=== PATIENT | male | born 1955 | race Caucasian/White ===

== ENCOUNTER 2023-04-05 13:16 | Inpatient (IN) | payer MEDICARE, OTHER ==
[~2023-04-05] VITALS: Ht 188 cm; Wt 79.4 kg
[2023-04-05] MEDS ORDERED: ONDANSETRON 4 MG/2 ML VIAL IV ONE (13:45)
[2023-04-05] MEDS ORDERED: IV NORMAL SALINE 1000 ML BAG IV ONE (13:45)
[2023-04-05 13:53] LABS: EOSINOPHILS % (AUTO) 0.1 % (0.0-7.0); HEMATOCRIT 21.8 % (36.7-47.1); LYMPHOCYTES # (AUTO) 0.3 K/uL (0.8-4.8); LYMPHOCYTES % (AUTO) 8.5 % (20.5-51.5); MEAN CORPUSCULAR HEMOGLOBIN 25.2 uug (23.8-33.4); MEAN CORPUSCULAR HGB CONC 31 g/dL (32.5-36.3); MEAN CORPUSCULAR VOLUME 80.4 fL (73.0-96.2); MONOCYTES # (AUTO) 0.5 K/uL (0.1-1.30); NEUTROPHILS # (AUTO) 3.1 K/uL (1.8-8.9); NEUTROPHILS % (AUTO) 77.4 % (38.5-71.5); PLATELET COUNT (AUTO) 231 K/uL (152-348); RED BLOOD CELL COUNT(AUTO) 2.72 MIL/uL (4.06-5.63); RED CELL DISTRIBUTION WIDTH 19.4 % (12.1-16.2)
[2023-04-05] MEDS ORDERED: ONDANSETRON 4 MG/2 ML VIAL ONE (13:55)
[2023-04-05 14:13] LABS: ALANINE AMINOTRANSFERASE < 6 U/L (16-63); ALKALINE PHOSPHATASE 100 U/L (50-136); ASPARTATE AMINOTRANSFERASE 6 U/L (15-37); BILIRUBIN,DIRECT 0.1 mg/dL (0.0-0.2); BILIRUBIN,TOTAL 0.3 mg/dL (0.2-1.0); CALCIUM 8.4 mg/dL (8.5-10.1); CARBON DIOXIDE 26 mmol/L (21-32); CHLORIDE 100 mmol/L (98-107); CREATININE 0.5 mg/dL (0.6-1.3); GLUCOSE 131 mg/dL (74-106); NT-PRO BNP 465 pg/mL (0-125); POTASSIUM 3.9 mmol/L (3.5-5.1); SODIUM SERUM 135 mmol/L (136-145); TOTAL PROTEIN, SERUM 6.6 g/dL (6.4-8.2); UREA NITROGEN, BLOOD 9 mg/dL (7-18)
[2023-04-05 14:30] LABS: DIFFERENTIAL COMMENT 1
[2023-04-05] MEDS ORDERED: EPOGEN SQ (15:01)
[2023-04-05] MEDS ORDERED: PROC10TA13 PO ×2 (15:01)
[2023-04-05] MEDS ORDERED: CYAN100085 PO (15:01)
[2023-04-05] MEDS ORDERED: LEVE500T9 PO (15:01)
[2023-04-05] MEDS ORDERED: OMEP40CA21 PO (15:01)
[2023-04-05] MEDS ORDERED: FOLI1TAB27 PO (15:01)
[2023-04-05] MEDS ORDERED: GLIP5TAB13 PO (15:01)
[2023-04-05] MEDS ORDERED: METO25TA6 PO (15:01)
[2023-04-05] MEDS ORDERED: FERR325T28 PO (15:01)
[2023-04-05] MEDS ORDERED: FINA5TAB3 PO (15:01)
[2023-04-05] MEDS ORDERED: [UNRECOGNIZED DRUG - CODE] PO (15:01)
[2023-04-05] MEDS ORDERED: ATOR40TA PO (15:01)
[2023-04-05] MEDS ORDERED: TAMS-3 PO (15:01)
[2023-04-05] MEDS ORDERED: POLY250017 PO (15:01)
[2023-04-05] MEDS ORDERED: METF-442 PO (15:01)
[2023-04-05] MEDS ORDERED: DEXTROSE 50% 50 ML DISP.SYRIN IV PRN (15:15)
[2023-04-05] MEDS ORDERED: REMEDY ESSENTIAL ZINC PASTE 113 GM TP PRN (15:15)
[2023-04-05] MEDS ORDERED: TEMAZEPAM 15 MG CAPSULE PO PRN (15:15)
[2023-04-05] MEDS ORDERED: MAGNESIUM HYDROXIDE 30 ML LIQUID UDC PO PRN (15:15)
[2023-04-05] MEDS ORDERED: MORPHINE SULFATE 2 MG/1 ML DISP.SYRIN IV PRN (15:15)
[2023-04-05] MEDS ORDERED: HYDROCODONE/APAP 5-325MG TABLET PO PRN (15:15)
[2023-04-05 15:21] LABS: HEMOGLOBIN 6.8 g/dL (12.5-16.3)
[2023-04-05 15:22] LABS: ALBUMIN 1.1 g/dL (3.4-5.0)
[2023-04-05] MEDS ORDERED: PROCHLORPERAZINE MALEATE 5 MG TABLET PO PRN (16:15)
[2023-04-05] MEDS ORDERED: HOME MED MISCELLANEOUS XX SCH ×2 (16:15)
[2023-04-05] MEDS ORDERED: levETIRAcetam 250 MG TABLET ONE (16:33)
[2023-04-05] MEDS ORDERED: METOPROLOL TARTRATE 50 MG TABLET ONE (16:34)
[2023-04-05] MEDS ORDERED: ATORVASTATIN 20 MG TABLET ONE (16:34)
[2023-04-05 16:40] LABS: ANISOCYTOSIS 2+; HYPOCHROMASIA 1+; LYMPHOCYTES % (MANUAL) 8 % (20-40); MONOCYTES % (MANUAL) 7 % (2-10); NEUTROPHILS % (MANUAL) 85 % (42-75)
[2023-04-05] MEDS: glipiZIDE 5 MG TABLET PO SCH (16:58)
[2023-04-05] MEDS: BLOOD SUGAR DIAGNOSTIC 1 EACH STRIP VI SCH ×2 (16:58→22:40)
[2023-04-05] MEDS ORDERED: MIRALAX 17 GM POWD.PACK PO PRN (17:00)
[2023-04-05] MEDS ORDERED: levETIRAcetam 500 MG TABLET PO SCH (17:00)
[2023-04-05] MEDS ORDERED: METOPROLOL TARTRATE 25 MG TABLET PO SCH (17:00)
[2023-04-05] MEDS ORDERED: ATORVASTATIN 40 MG TABLET PO SCH (18:00)
[2023-04-06] MEDS ORDERED: LOPERAMIDE HCL 2 MG CAPSULE ONE (01:53)
[2023-04-06] MEDS ORDERED: LOPERAMIDE HCL 2 MG CAPSULE PO PRN (02:00)
[2023-04-06 06:48] LABS: BASOPHILS % (AUTO) 0.3 % (0.0-2.0); EOSINOPHILS % (AUTO) 0.2 % (0.0-7.0); HEMATOCRIT 24.2 % (36.7-47.1); HEMOGLOBIN 7.9 g/dL (12.5-16.3); LYMPHOCYTES # (AUTO) 0.3 K/uL (0.8-4.8); LYMPHOCYTES % (AUTO) 7.1 % (20.5-51.5); MEAN CORPUSCULAR HEMOGLOBIN 26.2 uug (23.8-33.4); MEAN CORPUSCULAR HGB CONC 33 g/dL (32.5-36.3); MONOCYTES # (AUTO) 0.6 K/uL (0.1-1.30); MONOCYTES % (AUTO) 16.8 % (0.0-11.0); NEUTROPHILS # (AUTO) 2.8 K/uL (1.8-8.9); NEUTROPHILS % (AUTO) 75.6 % (38.5-71.5); PLATELET COUNT (AUTO) 218 K/uL (152-348); RED BLOOD CELL COUNT(AUTO) 3.03 MIL/uL (4.06-5.63); RED CELL DISTRIBUTION WIDTH 18.5 % (12.1-16.2); WHITE BLOOD COUNT (AUTO) 3.7 K/uL (3.6-10.2)
[2023-04-06] MEDS ORDERED: PANTOPRAZOLE SODIUM 40 MG TABLET.DR PO ONE (06:50)
[2023-04-06 06:54] LABS: DIFFERENTIAL COMMENT 1
[2023-04-06 06:57] LABS: CALCIUM 7.6 mg/dL (8.5-10.1); CARBON DIOXIDE 26 mmol/L (21-32); CHLORIDE 102 mmol/L (98-107); CHOLESTEROL 75 mg/dL (<200); CREATININE 0.5 mg/dL (0.6-1.3); GLUCOSE 102 mg/dL (74-106); HDL CHOLESTEROL 25 mg/dL (40-60); PHOSPHOROUS 2.9 mg/dL (2.5-4.9); POTASSIUM 3.5 mmol/L (3.5-5.1); SODIUM SERUM 138 mmol/L (136-145); TRIGLYCERIDES 51 MG/DL (30-150); UREA NITROGEN, BLOOD 6 mg/dL (7-18)
[2023-04-06 07:04] LABS: MAGNESIUM 1.2 mg/dL (1.8-2.4)
[2023-04-06] MEDS: PANTOPRAZOLE SODIUM 40 MG TABLET.DR PO SCH (07:26)
[2023-04-06] MEDS: BLOOD SUGAR DIAGNOSTIC 1 EACH STRIP VI SCH ×4 (07:44→21:13)
[2023-04-06] MEDS ORDERED: FOLIC ACID 1 MG TABLET ONE (08:36)
[2023-04-06] MEDS ORDERED: METOPROLOL TARTRATE 50 MG TABLET ONE (08:36)
[2023-04-06] MEDS ORDERED: CYANOCOBALAMIN 1,000 MCG TABLET ONE (08:37)
[2023-04-06] MEDS ORDERED: FINASTERIDE 5 MG TABLET ONE (08:37)
[2023-04-06] MEDS: FINASTERIDE 5 MG TABLET PO SCH (08:52)
[2023-04-06] MEDS: CALCIUM CARB/VITAMIN D 600-400 MG TABLET PO SCH (08:52)
[2023-04-06] MEDS: FOLIC ACID 1 MG TABLET PO SCH (08:52)
[2023-04-06] MEDS: levETIRAcetam 500 MG TABLET PO SCH ×2 (08:52→21:16)
[2023-04-06] MEDS: METOPROLOL TARTRATE 25 MG TABLET PO SCH ×2 (08:52→21:16)
[2023-04-06] MEDS: CYANOCOBALAMIN 1,000 MCG TABLET PO SCH (08:53)
[2023-04-06] MEDS: glipiZIDE 5 MG TABLET PO SCH ×2 (09:19→17:38)
[2023-04-06] MEDS ORDERED: MAGNESIUM SULFATE/D5W 100 ML ONE ×4 (09:22→13:10)
[2023-04-06] MEDS: MAGNESIUM SULFATE/D5W 100 ML IV SCH ×4 (09:35→12:59)
[2023-04-06 15:36] LABS: ANISOCYTOSIS 2+; LYMPHOCYTES % (MANUAL) 9 % (20-40); MONOCYTES % (MANUAL) 16 % (2-10); NEUTROPHILS % (MANUAL) 75 % (42-75); PLATELET ESTIMATE ADEQUATE
[2023-04-06 15:57] VITALS: BP 112/62; TEMP 97.6; O2SAT 99
[2023-04-06] MEDS: PROTEIN SUPPLEMENT (PROSTAT) 30 ML LIQUID PO SCH (17:38)
[2023-04-06 17:41] LABS: *BILIRUBIN,URIN NEGATIVE (NEGATIVE); *CLARITY,URINE CLEAR (CLEAR); *COLOR,URINE Other (YELLOW); *KETONES,URINE NEGATIVE (NEGATIVE); *PROTEIN,URINE NEGATIVE (NEGATIVE); LEUKOCYTE ESTERASE ,URINE NEGATIVE (NEGATIVE); NITRITE, URINE NEGATIVE (NEGATIVE); UGLUCOSE NEGATIVE (NEGATIVE)
[2023-04-06 17:50] LABS: *BLOOD, URINE TRACE (NEGATIVE)
[2023-04-06 17:59] LABS: WBC,URINE NONE SEEN /HPF (0-3)
[2023-04-06 20:00] VITALS: BP 118/62; TEMP 98.4; O2SAT 98
[2023-04-06] MEDS: ATORVASTATIN 40 MG TABLET PO SCH (21:16)
[2023-04-06] MEDS: TAMSULOSIN HCL 0.4 MG CAP.SR.24H PO SCH (21:16)
[2023-04-07 04:00] VITALS: BP 121/62; TEMP 98.3; O2SAT 99
[2023-04-07] MEDS: ACETAMINOPHEN 325 MG TABLET PO PRN (04:15)
[2023-04-07] MEDS: PANTOPRAZOLE SODIUM 40 MG TABLET.DR PO SCH (06:27)
[2023-04-07] MEDS: BLOOD SUGAR DIAGNOSTIC 1 EACH STRIP VI SCH ×4 (06:34→21:14)
[2023-04-07 07:23] LABS: BASOPHILS % (AUTO) 0.3 % (0.0-2.0); EOSINOPHILS % (AUTO) 0.2 % (0.0-7.0); HEMATOCRIT 23.4 % (36.7-47.1); HEMOGLOBIN 7.5 g/dL (12.5-16.3); LYMPHOCYTES # (AUTO) 0.3 K/uL (0.8-4.8); LYMPHOCYTES % (AUTO) 7.5 % (20.5-51.5); MEAN CORPUSCULAR HEMOGLOBIN 25.7 uug (23.8-33.4); MEAN CORPUSCULAR HGB CONC 32 g/dL (32.5-36.3); MEAN CORPUSCULAR VOLUME 79.9 fL (73.0-96.2); MONOCYTES # (AUTO) 0.6 K/uL (0.1-1.30); MONOCYTES % (AUTO) 16.5 % (0.0-11.0); NEUTROPHILS # (AUTO) 2.8 K/uL (1.8-8.9); NEUTROPHILS % (AUTO) 75.5 % (38.5-71.5); PLATELET COUNT (AUTO) 205 K/uL (152-348); RED BLOOD CELL COUNT(AUTO) 2.93 MIL/uL (4.06-5.63); RED CELL DISTRIBUTION WIDTH 18.5 % (12.1-16.2); WHITE BLOOD COUNT (AUTO) 3.7 K/uL (3.6-10.2)
[2023-04-07 07:35] LABS: DIFFERENTIAL COMMENT 1
[2023-04-07 07:41] LABS: CARBON DIOXIDE 27 mmol/L (21-32); CHLORIDE 101 mmol/L (98-107); CREATININE 0.6 mg/dL (0.6-1.3); GLUCOSE 127 mg/dL (74-106); POTASSIUM 3.6 mmol/L (3.5-5.1); SODIUM SERUM 135 mmol/L (136-145)
[2023-04-07 07:51] LABS: UREA NITROGEN, BLOOD 7 mg/dL (7-18)
[2023-04-07 08:37] LABS: ANISOCYTOSIS 1+; LYMPHOCYTES % (MANUAL) 9 % (20-40); MONOCYTES % (MANUAL) 14 % (2-10); NEUTROPHILS % (MANUAL) 77 % (42-75); PLATELET ESTIMATE ADEQUATE
[2023-04-07 08:38] LABS: HYPOCHROMASIA 1+; OVALOCYTES 1+
[2023-04-07] MEDS: CYANOCOBALAMIN 1,000 MCG TABLET PO SCH (08:53)
[2023-04-07] MEDS: glipiZIDE 5 MG TABLET PO SCH ×2 (08:53→17:13)
[2023-04-07] MEDS: METOPROLOL TARTRATE 25 MG TABLET PO SCH ×2 (08:53→21:16)
[2023-04-07] MEDS: FOLIC ACID 1 MG TABLET PO SCH (08:53)
[2023-04-07] MEDS: levETIRAcetam 500 MG TABLET PO SCH ×2 (08:53→21:15)
[2023-04-07] MEDS: CALCIUM CARB/VITAMIN D 600-400 MG TABLET PO SCH (08:53)
[2023-04-07] MEDS: FERROUS SULFATE 325 MG TABEC PO SCH ×3 (08:53→17:12)
[2023-04-07] MEDS: PROTEIN SUPPLEMENT (PROSTAT) 30 ML LIQUID PO SCH ×2 (08:54→17:00)
[2023-04-07] MEDS: FINASTERIDE 5 MG TABLET PO SCH (08:54)
[2023-04-07] MEDS: MAGNESIUM SULFATE/D5W 100 ML IV SCH ×2 (10:37→10:42)
[2023-04-07 11:41] VITALS: BP 126/68; TEMP 98; O2SAT 97
[2023-04-07 16:00] VITALS: BP 137/68; TEMP 98.5
[2023-04-07] MEDS: ONDANSETRON 4 MG/2 ML VIAL IV PRN ×2 (17:13→17:17)
[2023-04-07 20:00] VITALS: BP 124/69; TEMP 97.2; O2SAT 98
[2023-04-07] MEDS: ATORVASTATIN 40 MG TABLET PO SCH (21:15)
[2023-04-07] MEDS: TAMSULOSIN HCL 0.4 MG CAP.SR.24H PO SCH (21:17)
[2023-04-08] VITALS (10 sets, daily range): BP systolic 116–132; BP diastolic 62–71; TEMP 97.4–99.4; O2SAT 96–98
[2023-04-08] MEDS: PANTOPRAZOLE SODIUM 40 MG TABLET.DR PO SCH (07:04)
[2023-04-08 07:11] LABS: BASOPHILS % (AUTO) 0.3 % (0.0-2.0); HEMATOCRIT 22.6 % (36.7-47.1); LYMPHOCYTES # (AUTO) 0.4 K/uL (0.8-4.8); LYMPHOCYTES % (AUTO) 9.6 % (20.5-51.5); MEAN CORPUSCULAR HEMOGLOBIN 25.8 uug (23.8-33.4); MEAN CORPUSCULAR HGB CONC 32 g/dL (32.5-36.3); MONOCYTES # (AUTO) 0.7 K/uL (0.1-1.30); MONOCYTES % (AUTO) 18.5 % (0.0-11.0); NEUTROPHILS # (AUTO) 2.7 K/uL (1.8-8.9); NEUTROPHILS % (AUTO) 71.6 % (38.5-71.5); PLATELET COUNT (AUTO) 215 K/uL (152-348); RED BLOOD CELL COUNT(AUTO) 2.78 MIL/uL (4.06-5.63); RED CELL DISTRIBUTION WIDTH 19.1 % (12.1-16.2); WHITE BLOOD COUNT (AUTO) 3.8 K/uL (3.6-10.2)
[2023-04-08 07:23] LABS: DIFFERENTIAL COMMENT 1
[2023-04-08 07:34] LABS: CALCIUM 7.8 mg/dL (8.5-10.1); CARBON DIOXIDE 28 mmol/L (21-32); CHLORIDE 103 mmol/L (98-107); CREATININE 0.6 mg/dL (0.6-1.3); GLUCOSE 115 mg/dL (74-106); POTASSIUM 3.8 mmol/L (3.5-5.1); SODIUM SERUM 136 mmol/L (136-145); UREA NITROGEN, BLOOD 7 mg/dL (7-18)
[2023-04-08 07:35] LABS: HEMOGLOBIN 7.2 g/dL (12.5-16.3)
[2023-04-08] MEDS: BLOOD SUGAR DIAGNOSTIC 1 EACH STRIP VI SCH ×4 (07:48→21:00)
[2023-04-08] MEDS: CYANOCOBALAMIN 1,000 MCG TABLET PO SCH (08:32)
[2023-04-08] MEDS: FOLIC ACID 1 MG TABLET PO SCH (08:32)
[2023-04-08] MEDS: levETIRAcetam 500 MG TABLET PO SCH ×2 (08:32→21:54)
[2023-04-08] MEDS: CALCIUM CARB/VITAMIN D 600-400 MG TABLET PO SCH (08:32)
[2023-04-08] MEDS: FERROUS SULFATE 325 MG TABEC PO SCH ×3 (08:33→17:04)
[2023-04-08] MEDS: glipiZIDE 5 MG TABLET PO SCH ×2 (08:33→17:04)
[2023-04-08] MEDS: FINASTERIDE 5 MG TABLET PO SCH (08:33)
[2023-04-08] MEDS: METOPROLOL TARTRATE 25 MG TABLET PO SCH ×2 (08:33→21:53)
[2023-04-08] MEDS: MAGNESIUM SULFATE/D5W 100 ML IV SCH ×2 (08:35→09:27)
[2023-04-08] MEDS: PROTEIN SUPPLEMENT (PROSTAT) 30 ML LIQUID PO SCH ×2 (08:35→17:05)
[2023-04-08 08:53] LABS: IRON, SERUM 16 ug/dL (50-175)
[2023-04-08] MEDS ORDERED: EPOETIN ALFA 10,000 UNITS/ML VIAL SQ SCH (09:00)
[2023-04-08] MEDS ORDERED: EPOETIN ALFA-EPBX 10,000 UNIT/ML VIAL SQ SCH ×2 (09:00)
[2023-04-08 09:32] LABS: ANISOCYTOSIS 2+; HYPOCHROMASIA 1+; LYMPHOCYTES % (MANUAL) 6 % (20-40); MONOCYTES % (MANUAL) 9 % (2-10); NEUTROPHILS % (MANUAL) 85 % (42-75); PLATELET ESTIMATE ADEQUATE
[2023-04-08] MEDS: INSULIN REGULAR, HUMAN 300 UNIT/3 ML VIAL SQ PRN ×2 (11:07→16:48)
[2023-04-08] MEDS: ACETAMINOPHEN 325 MG TABLET PO PRN (21:53)
[2023-04-08] MEDS: ATORVASTATIN 40 MG TABLET PO SCH (21:53)
[2023-04-08] MEDS: TAMSULOSIN HCL 0.4 MG CAP.SR.24H PO SCH (21:55)
[2023-04-09 04:00] VITALS: BP 148/64; TEMP 98; O2SAT 98
[2023-04-09 07:01] LABS: BASOPHILS % (AUTO) 0.4 % (0.0-2.0); EOSINOPHILS % (AUTO) 0.3 % (0.0-7.0); HEMATOCRIT 23.9 % (36.7-47.1); LYMPHOCYTES # (AUTO) 0.4 K/uL (0.8-4.8); LYMPHOCYTES % (AUTO) 9.8 % (20.5-51.5); MEAN CORPUSCULAR HEMOGLOBIN 27.1 uug (23.8-33.4); MEAN CORPUSCULAR HGB CONC 34 g/dL (32.5-36.3); MEAN CORPUSCULAR VOLUME 80.8 fL (73.0-96.2); MONOCYTES # (AUTO) 0.7 K/uL (0.1-1.30); MONOCYTES % (AUTO) 18.4 % (0.0-11.0); NEUTROPHILS # (AUTO) 2.7 K/uL (1.8-8.9); NEUTROPHILS % (AUTO) 71.1 % (38.5-71.5); PLATELET COUNT (AUTO) 208 K/uL (152-348); RED BLOOD CELL COUNT(AUTO) 2.95 MIL/uL (4.06-5.63); RED CELL DISTRIBUTION WIDTH 18.8 % (12.1-16.2); WHITE BLOOD COUNT (AUTO) 3.8 K/uL (3.6-10.2)
[2023-04-09 07:22] LABS: DIFFERENTIAL COMMENT 1
[2023-04-09 07:26] LABS: LYMPHOCYTES % (MANUAL) 0 % (20-40); NEUTROPHILS % (MANUAL) 0 % (42-75)
[2023-04-09 07:40] LABS: CALCIUM 7.6 mg/dL (8.5-10.1); CARBON DIOXIDE 28 mmol/L (21-32); CHLORIDE 101 mmol/L (98-107); CREATININE 0.5 mg/dL (0.6-1.3); GLUCOSE 113 mg/dL (74-106); POTASSIUM 3.3 mmol/L (3.5-5.1); SODIUM SERUM 135 mmol/L (136-145); UREA NITROGEN, BLOOD 6 mg/dL (7-18)
[2023-04-09] MEDS: BLOOD SUGAR DIAGNOSTIC 1 EACH STRIP VI SCH ×4 (08:16→21:22)
[2023-04-09] MEDS: PANTOPRAZOLE SODIUM 40 MG TABLET.DR PO SCH (08:22)
[2023-04-09] MEDS: CYANOCOBALAMIN 1,000 MCG TABLET PO SCH (08:22)
[2023-04-09] MEDS: levETIRAcetam 500 MG TABLET PO SCH ×2 (08:22→21:19)
[2023-04-09] MEDS: FOLIC ACID 1 MG TABLET PO SCH (08:22)
[2023-04-09] MEDS: CALCIUM CARB/VITAMIN D 600-400 MG TABLET PO SCH (08:22)
[2023-04-09] MEDS: glipiZIDE 5 MG TABLET PO SCH ×2 (08:24→16:55)
[2023-04-09] MEDS: FINASTERIDE 5 MG TABLET PO SCH (08:24)
[2023-04-09] MEDS: FERROUS SULFATE 325 MG TABEC PO SCH ×3 (08:24→16:55)
[2023-04-09] MEDS: METOPROLOL TARTRATE 25 MG TABLET PO SCH ×2 (09:10→21:19)
[2023-04-09] MEDS: PROTEIN SUPPLEMENT (PROSTAT) 30 ML LIQUID PO SCH ×2 (09:11→17:00)
[2023-04-09] MEDS ORDERED: POTASSIUM CHLORIDE 20 MEQ TAB.PRT.SR PO ONE (11:00)
[2023-04-09] MEDS: MAGNESIUM SULFATE/D5W 100 ML IV SCH ×2 (11:05→12:30)
[2023-04-09] MEDS: INSULIN REGULAR, HUMAN 300 UNIT/3 ML VIAL SQ PRN (11:25)
[2023-04-09 14:50] VITALS: TEMP 98.4
[2023-04-09] MEDS: ONDANSETRON 4 MG/2 ML VIAL IV PRN (16:55)
[2023-04-09 17:16] VITALS: TEMP 98.1
[2023-04-09 17:44] LABS: *OCCULT BLOOD STOOL NEGATIVE (NEGATIVE)
[2023-04-09 20:32] VITALS: BP 122/66; TEMP 98.1; O2SAT 99
[2023-04-09] MEDS: TAMSULOSIN HCL 0.4 MG CAP.SR.24H PO SCH (21:19)
[2023-04-09] MEDS: ATORVASTATIN 40 MG TABLET PO SCH (21:19)
[2023-04-10 04:20] VITALS: BP 123/66; TEMP 98.4; O2SAT 95
[2023-04-10] MEDS: PANTOPRAZOLE SODIUM 40 MG TABLET.DR PO SCH (06:15)
[2023-04-10] MEDS: BLOOD SUGAR DIAGNOSTIC 1 EACH STRIP VI SCH ×4 (06:42→21:06)
[2023-04-10 07:25] LABS: BASOPHILS % (AUTO) 0.4 % (0.0-2.0); EOSINOPHILS % (AUTO) 0.2 % (0.0-7.0); HEMATOCRIT 24.9 % (36.7-47.1); HEMOGLOBIN 8.1 g/dL (12.5-16.3); LYMPHOCYTES # (AUTO) 0.4 K/uL (0.8-4.8); LYMPHOCYTES % (AUTO) 9.3 % (20.5-51.5); MEAN CORPUSCULAR HEMOGLOBIN 26.4 uug (23.8-33.4); MEAN CORPUSCULAR HGB CONC 32 g/dL (32.5-36.3); MEAN CORPUSCULAR VOLUME 81.3 fL (73.0-96.2); MONOCYTES # (AUTO) 0.7 K/uL (0.1-1.30); MONOCYTES % (AUTO) 17.9 % (0.0-11.0); NEUTROPHILS # (AUTO) 2.9 K/uL (1.8-8.9); NEUTROPHILS % (AUTO) 72.2 % (38.5-71.5); PLATELET COUNT (AUTO) 205 K/uL (152-348); RED BLOOD CELL COUNT(AUTO) 3.06 MIL/uL (4.06-5.63); RED CELL DISTRIBUTION WIDTH 19.2 % (12.1-16.2)
[2023-04-10 07:31] LABS: DIFFERENTIAL COMMENT 1
[2023-04-10 07:34] LABS: NEUTROPHILS % (MANUAL) 0 % (42-75)
[2023-04-10 07:35] LABS: LYMPHOCYTES % (MANUAL) 0 % (20-40)
[2023-04-10 07:38] LABS: ALANINE AMINOTRANSFERASE 8 U/L (16-63); ALKALINE PHOSPHATASE 87 U/L (50-136); ASPARTATE AMINOTRANSFERASE 7 U/L (15-37); BILIRUBIN,TOTAL 0.4 mg/dL (0.2-1.0); CALCIUM 8.1 mg/dL (8.5-10.1); CARBON DIOXIDE 27 mmol/L (21-32); CHLORIDE 101 mmol/L (98-107); CREATININE 0.5 mg/dL (0.6-1.3); GLUCOSE 109 mg/dL (74-106); MAGNESIUM 1.5 mg/dL (1.8-2.4); POTASSIUM 3.9 mmol/L (3.5-5.1); SODIUM SERUM 136 mmol/L (136-145); UREA NITROGEN, BLOOD 7 mg/dL (7-18)
[2023-04-10] MEDS: FERROUS SULFATE 325 MG TABEC PO SCH ×3 (08:31→17:10)
[2023-04-10] MEDS: CYANOCOBALAMIN 1,000 MCG TABLET PO SCH (08:32)
[2023-04-10] MEDS: METOPROLOL TARTRATE 25 MG TABLET PO SCH ×2 (08:32→21:13)
[2023-04-10] MEDS: CALCIUM CARB/VITAMIN D 600-400 MG TABLET PO SCH (08:32)
[2023-04-10] MEDS: FOLIC ACID 1 MG TABLET PO SCH (08:32)
[2023-04-10] MEDS: glipiZIDE 5 MG TABLET PO SCH ×2 (08:33→17:10)
[2023-04-10] MEDS: FINASTERIDE 5 MG TABLET PO SCH (08:33)
[2023-04-10] MEDS: levETIRAcetam 500 MG TABLET PO SCH ×2 (08:33→21:13)
[2023-04-10] MEDS: ENSURE ENLIVE (VAN) 240 ML LIQUID PO SCH (08:34)
[2023-04-10] MEDS: PROTEIN SUPPLEMENT (PROSTAT) 30 ML LIQUID PO SCH ×2 (08:34→17:10)
[2023-04-10 10:57] LABS: ALBUMIN 0.9 g/dL (3.4-5.0)
[2023-04-10] MEDS: INSULIN REGULAR, HUMAN 300 UNIT/3 ML VIAL SQ PRN ×3 (11:27→21:17)
[2023-04-10 11:39] VITALS: BP 119/66; TEMP 98.4; O2SAT 99
[2023-04-10] MEDS: MAGNESIUM SULFATE/D5W 100 ML IV SCH ×2 (12:14→12:26)
[2023-04-10] MEDS: ACIDOPHILUS/BULGARICUS CHEW TAB PO SCH ×3 (12:27→22:06)
[2023-04-10 15:46] VITALS: BP 98/62; TEMP 98.4; O2SAT 100
[2023-04-10 20:00] VITALS: BP 123/66; TEMP 98.2
[2023-04-10] MEDS: TAMSULOSIN HCL 0.4 MG CAP.SR.24H PO SCH (21:06)
[2023-04-10] MEDS: ATORVASTATIN 40 MG TABLET PO SCH (21:13)
[2023-04-11 04:00] VITALS: BP 120/65; TEMP 98.5
[2023-04-11] MEDS: ACIDOPHILUS/BULGARICUS CHEW TAB PO SCH ×3 (06:16→22:27)
[2023-04-11] MEDS: PANTOPRAZOLE SODIUM 40 MG TABLET.DR PO SCH (06:16)
[2023-04-11] MEDS: BLOOD SUGAR DIAGNOSTIC 1 EACH STRIP VI SCH ×4 (06:49→21:18)
[2023-04-11 07:29] LABS: BASOPHILS % (AUTO) 0.3 % (0.0-2.0); EOSINOPHILS % (AUTO) 0.2 % (0.0-7.0); HEMATOCRIT 23.4 % (36.7-47.1); HEMOGLOBIN 7.5 g/dL (12.5-16.3); LYMPHOCYTES # (AUTO) 0.3 K/uL (0.8-4.8); LYMPHOCYTES % (AUTO) 8.4 % (20.5-51.5); MEAN CORPUSCULAR HGB CONC 32 g/dL (32.5-36.3); MEAN CORPUSCULAR VOLUME 81.3 fL (73.0-96.2); MONOCYTES # (AUTO) 0.7 K/uL (0.1-1.30); MONOCYTES % (AUTO) 16.5 % (0.0-11.0); NEUTROPHILS # (AUTO) 2.9 K/uL (1.8-8.9); NEUTROPHILS % (AUTO) 74.6 % (38.5-71.5); PLATELET COUNT (AUTO) 186 K/uL (152-348); RED BLOOD CELL COUNT(AUTO) 2.87 MIL/uL (4.06-5.63); WHITE BLOOD COUNT (AUTO) 3.9 K/uL (3.6-10.2)
[2023-04-11 07:41] LABS: DIFFERENTIAL COMMENT 1
[2023-04-11 09:17] LABS: LYMPHOCYTES % (MANUAL) 0 % (20-40); NEUTROPHILS % (MANUAL) 0 % (42-75)
[2023-04-11] MEDS: CALCIUM CARB/VITAMIN D 600-400 MG TABLET PO SCH (09:30)
[2023-04-11] MEDS: glipiZIDE 5 MG TABLET PO SCH ×2 (09:30→18:04)
[2023-04-11] MEDS: FINASTERIDE 5 MG TABLET PO SCH (09:30)
[2023-04-11] MEDS: levETIRAcetam 500 MG TABLET PO SCH ×2 (09:30→21:11)
[2023-04-11] MEDS: METOPROLOL TARTRATE 25 MG TABLET PO SCH ×2 (09:30→21:15)
[2023-04-11] MEDS: CYANOCOBALAMIN 1,000 MCG TABLET PO SCH (09:30)
[2023-04-11] MEDS: FERROUS SULFATE 325 MG TABEC PO SCH ×3 (09:30→18:04)
[2023-04-11] MEDS: PROTEIN SUPPLEMENT (PROSTAT) 30 ML LIQUID PO SCH ×2 (09:31→17:00)
[2023-04-11] MEDS: ENSURE ENLIVE (VAN) 240 ML LIQUID PO SCH (09:31)
[2023-04-11] MEDS: FOLIC ACID 1 MG TABLET PO SCH (09:49)
[2023-04-11 12:00] VITALS: BP 128/66; TEMP 97.9; O2SAT 98
[2023-04-11] MEDS ORDERED: SOD FERRIC GLUC COMPLX/SUCROSE 125 MG in IV NORMAL SALINE 100 ML IV SCH (14:00)
[2023-04-11 16:00] VITALS: BP 129/66; TEMP 97.9; O2SAT 97
[2023-04-11 20:00] VITALS: BP 125/67; TEMP 98.1; O2SAT 98
[2023-04-11] MEDS: TAMSULOSIN HCL 0.4 MG CAP.SR.24H PO SCH (21:11)
[2023-04-11] MEDS: ATORVASTATIN 40 MG TABLET PO SCH (21:11)
[2023-04-12 04:00] VITALS: BP 124/65; TEMP 98; O2SAT 97
[2023-04-12] MEDS: ACIDOPHILUS/BULGARICUS CHEW TAB PO SCH (06:22)
[2023-04-12] MEDS: PANTOPRAZOLE SODIUM 40 MG TABLET.DR PO SCH (06:22)
[2023-04-12] MEDS: BLOOD SUGAR DIAGNOSTIC 1 EACH STRIP VI SCH ×2 (06:27→11:30)
[2023-04-12 07:06] LABS: BASOPHILS % (AUTO) 0.2 % (0.0-2.0); EOSINOPHILS % (AUTO) 0.3 % (0.0-7.0); HEMATOCRIT 23.3 % (36.7-47.1); LYMPHOCYTES # (AUTO) 0.3 K/uL (0.8-4.8); LYMPHOCYTES % (AUTO) 9.7 % (20.5-51.5); MEAN CORPUSCULAR HGB CONC 32 g/dL (32.5-36.3); MONOCYTES # (AUTO) 0.5 K/uL (0.1-1.30); MONOCYTES % (AUTO) 14.9 % (0.0-11.0); NEUTROPHILS # (AUTO) 2.6 K/uL (1.8-8.9); NEUTROPHILS % (AUTO) 74.9 % (38.5-71.5); PLATELET COUNT (AUTO) 183 K/uL (152-348); RED BLOOD CELL COUNT(AUTO) 2.84 MIL/uL (4.06-5.63); RED CELL DISTRIBUTION WIDTH 19.2 % (12.1-16.2); WHITE BLOOD COUNT (AUTO) 3.5 K/uL (3.6-10.2)
[2023-04-12 07:18] LABS: HEMOGLOBIN 7.4 g/dL (12.5-16.3)
[2023-04-12 07:19] LABS: DIFFERENTIAL COMMENT 1
[2023-04-12] MEDS: levETIRAcetam 500 MG TABLET PO SCH (08:33)
[2023-04-12] MEDS: glipiZIDE 5 MG TABLET PO SCH (08:34)
[2023-04-12] MEDS: CYANOCOBALAMIN 1,000 MCG TABLET PO SCH (08:34)
[2023-04-12] MEDS: ENSURE ENLIVE (VAN) 240 ML LIQUID PO SCH (08:34)
[2023-04-12] MEDS: FINASTERIDE 5 MG TABLET PO SCH (08:34)
[2023-04-12] MEDS: PROTEIN SUPPLEMENT (PROSTAT) 30 ML LIQUID PO SCH (08:34)
[2023-04-12] MEDS: METOPROLOL TARTRATE 25 MG TABLET PO SCH (08:34)
[2023-04-12] MEDS: FOLIC ACID 1 MG TABLET PO SCH (08:34)
[2023-04-12] MEDS: FERROUS SULFATE 325 MG TABEC PO SCH ×2 (08:34→13:00)
[2023-04-12] MEDS: CALCIUM CARB/VITAMIN D 600-400 MG TABLET PO SCH (08:57)
[2023-04-12] MEDS ORDERED: LEVE500T9 PO (10:30)
[2023-04-12] MEDS ORDERED: METO25TA6 PO (10:30)
[2023-04-12] MEDS ORDERED: PROT30LI PO (10:30)
[2023-04-12] MEDS ORDERED: CYAN-51 PO (10:30)
[2023-04-12] MEDS ORDERED: EPOE1VIA12 SQ (10:30)
[2023-04-12] MEDS ORDERED: LOPE2CAP40 PO (10:30)
[2023-04-12] MEDS ORDERED: ATOR40TA PO (10:30)
[2023-04-12] MEDS ORDERED: PANT40TA49 PO (10:30)
[2023-04-12] MEDS ORDERED: ACID1TAB4 PO (10:30)
[2023-04-12] MEDS ORDERED: EPOETIN ALFA 10,000 UNITS/ML VIAL SQ ONE (11:00)
[2023-04-12 11:36] VITALS: BP 135/70; TEMP 98.8; O2SAT 99
== END 2023-04-12 13:30 | DRG 542 ==
LOC: ER 13:16 → TRANSITION 22:14 → MEDSURG3 04-06 15:07
PROVIDERS: ADMIT Nurse Practitioner Acute Care; ATTEND Nurse Practitioner Acute Care
PROC: 30233N1 Transfusion of Nonautologous Red Blood Cells into Peripheral Vein, Percutaneous Approach (ICD-10-PCS; principal; 2023-04-05)
DX: C49.4 Malignant neoplasm of connective and soft tissue of abdomen (principal); E43 Unspecified severe protein-calorie malnutrition; E87.1 Hypo-osmolality and hyponatremia; D63.0 Anemia in neoplastic disease; E78.5 Hyperlipidemia, unspecified; E83.42 Hypomagnesemia; E88.09 Other disorders of plasma-protein metabolism, not elsewhere classified; I10 Essential (primary) hypertension; E11.610 Type 2 diabetes mellitus with diabetic neuropathic arthropathy; E11.42 Type 2 diabetes mellitus with diabetic polyneuropathy; N40.0 Benign prostatic hyperplasia without lower urinary tract symptoms; E86.1 Hypovolemia; G40.909 Epilepsy, unspecified, not intractable, without status epilepticus; Z79.84 Long term (current) use of oral hypoglycemic drugs; Z85.028 Personal history of other malignant neoplasm of stomach
CPT/HCPCS: 36415; 70030-TC; 70450; 71045; 83550; 83605; 83735; 84100; 84443; 84484; 85025; 85730; 86850; 86900; 86901; 86920; 87040; 93005; A4663; G0378; J0885; J2405; J2916; J3475; J7040; J8499; P9016